=== PATIENT | male | born 1985 | race Caucasian/White ===

== ENCOUNTER 2024-11-07 20:07 | Emergency (ER) | payer OTHER ==
[~2024-11-07] VITALS: Ht 180.3 cm; Wt 81.2 kg
[2024-11-07 20:55] VITALS: TEMP 98.1
[2024-11-07] MEDS ORDERED: MAG HYDROX/AL HYDROX/SIMETH 30 ML UDC ONE (21:24)
[2024-11-07] MEDS ORDERED: FAMOTIDINE/PF INJ 20 MG/2 ML VIAL IV ONE (21:24)
[2024-11-07] MEDS ORDERED: ONDANSETRON HCL/PF 4 MG/2 ML VIAL ONE (21:24)
[2024-11-07] MEDS ORDERED: LIDOCAINE VISCOUS 2% UD 15 ML UDC ONE (21:24)
[2024-11-07 21:38] LABS: PLATELET COUNT (AUTO) 183 K/uL (150-450); RED BLOOD CELL COUNT(AUTO) 4.71 MIL/uL (4.5-6.0); RED CELL DISTRIBUTION WIDTH 14.9 % (11.5-15.0); WHITE BLOOD COUNT (AUTO) 10.3 K/uL (4.3-11.0)
[2024-11-07] MEDS: ONDANSETRON HCL/PF 4 MG/2 ML VIAL IVP ONE (21:42)
[2024-11-07] MEDS: MAG HYDROX/AL HYDROX/SIMETH 30 ML UDC PO ONE (21:43)
[2024-11-07] MEDS: FAMOTIDINE/PF INJ 20 MG/2 ML VIAL IV ONE (21:43)
[2024-11-07] MEDS: IV NS 0.9% 1,000 ML BAG IV ONE (21:43)
[2024-11-07] MEDS: LIDOCAINE VISCOUS 2% UD 15 ML UDC MM ONE (21:43)
[2024-11-07 21:44] LABS: ASPARTATE AMINOTRANSFERASE 15.0 U/L (15-37); CALCIUM, SERUM 8.1 mg/dL (8.5-10.1); CREATININE 0.7 mg/dL (0.6-1.3); TOTAL PROTEIN, SERUM 6.6 g/dL (6.4-8.2); UREA NITROGEN, BLOOD 14.0 mg/dL (7-18)
[2024-11-07 21:52] LABS: APPEARANCE,URINE CLEAR (CLEAR); BLOOD, URINE NEGATIVE Ery/uL (NEGATIVE); LEUKOCYTE ESTERASE ,URINE NEGATIVE (NEGATIVE); NITRITE, URINE NEGATIVE (NEGATIVE); UGLUCOSE NEGATIVE (NEGATIVE)
[2024-11-07 22:02] LABS: SODIUM SERUM 138.0 mmol/L (136-145)
[2024-11-07] MEDS ORDERED: FAMO-131 PO (22:27)
[2024-11-07] MEDS ORDERED: ONDA4TAB5 PO (22:27)
[2024-11-07 23:05] VITALS: BP 130/78; O2SAT 98
== END 2024-11-07 23:06 | disposition home or self-care (01) ==
LOC: ER 20:24
DX: K29.20 Alcoholic gastritis without bleeding (principal); F10.10 Alcohol abuse, uncomplicated; F17.200 Nicotine dependence, unspecified, uncomplicated; Z87.19 Personal history of other diseases of the digestive system; Z60.2 Problems related to living alone
CPT/HCPCS: 99284; 96374; 96361; 96375; 85025; 80048; 83690; 80076; 81003; 36415; 80320; J1308; J2405; G0480